=== PATIENT | male | born 1985 | race Asian ===

== ENCOUNTER 2018-10-17 11:26 | Day surgery (SDC) | payer OTHER ==
[2018-10-16 11:16] VITALS: BMI 25.8
[2018-10-17] MEDS ORDERED: MIDAZOLAM HCL 2 MG/2 ML SINGLE DOSE VIAL ONE (13:31)
[2018-10-17] MEDS ORDERED: PROPOFOL 20 ML ONE (13:35)
[2018-10-17] MEDS ORDERED: ceFAZolin SODIUM 1 GM VIAL IVPB ONE (13:35)
[2018-10-17] MEDS ORDERED: oxyCODONE HCL 5 MG TABLET PO PRN (14:08)
--- NOTE | 2018-10-17 14:09 | OP ---
Operative Note - Note: Operative Date: 10/17/18 Pre-Operative Diagnosis: urethral stricture Operation: cysto/dilation Post-Operative Diagnosis: Same as Pre-op Anesthesia: General Estimated Blood Loss (mls): 2 Operative Report Dictated: Yes
[2018-10-17] MEDS ORDERED: ELECTROLYTE-148 SOLN 1,000 ML IV SCH (14:15)
--- NOTE | 2018-10-17 14:50 | OP ---
DATE OF OPERATION: 10/17/2018 PREOPERATIVE DIAGNOSIS: Urethral stricture. POSTOPERATIVE DIAGNOSIS: Urethral stricture. PROCEDURE: Cystoscopy, dilation urethral stricture, and Cifuentes insertion. SURGEON: Laura Alanis MD INDICATION: Patient is a 32-year-old male with a tight urethral stricture attempted dilation in the office without much success and so was taken to the OR for formal dilation. DESCRIPTION OF PROCEDURE: Patient was taken to the OR and placed supine on the operative table. After cardiac monitoring was administered and general anesthesia was established, he was prepped and draped in dorsal lithotomy position. The cystoscope was introduced without difficulty. Anterior urethra was normal to the portion of the sort of bubble membranous urethra there was a pinpoint stricture. Guidewire was introduced through the stricture into the bladder. Over the guidewire, ureteral catheter was advanced, and urine was retrieved from the catheter to confirm placement in the bladder. It was also confirmed with fluoroscopy. Contrast was injected for a cystogram. With the wire in place now, the urethra was dilated to 16-Turkish with Angela dilators, and then over the wire, a 16-Turkish [place] Tip catheter was advanced in a monorail fashion, and the wire removed. Clear urine was retrieved. The patient was then awoken from anesthesia, transferred to recovery in stable condition. There were no complications. Estimated blood loss was minimal. LAURA ALANIS M.D. [id number]
[2018-10-17] MEDS ORDERED: oxyCODONE HCL 5 MG TABLET ONE (15:57)
[2018-10-17] MEDS ORDERED: oxyCODONE HCL 5 MG TABLET PO ONE (16:00)
[2018-10-17 17:34] VITALS: PULSE 60
[2018-10-17 19:23] VITALS: BP 103/60; TEMP 98.3
== END 2018-10-17 18:00 | disposition home or self-care (01) ==
LOC: JASU-SURG 11:26
PROVIDERS: ATTEND Urology
PROC: 0T7D8ZZ Dilation of Urethra, Via Natural or Artificial Opening Endoscopic (ICD-10-PCS; principal; 2018-10-17 13:00)
DX: N35.913 Unspecified membranous urethral stricture, male (principal)
CPT/HCPCS: 94760